=== PATIENT | male | born 1965 | race Hispanic/Latino ===

== ENCOUNTER 2017-04-04 06:55 | Outpatient (CLI) | payer BC ==
[2017-04-04 08:13] LABS: ALT (SGPT) 78 U/L (8-55); AST (SGOT) 48 U/L (5-34); Albumin 4.3 g/dL (3.5-5.0); Alkaline Phosphatase 58 U/L (40-150); Anion Gap 12 mmol/L (10-20); BUN (Urea Nitrogen) 11 mg/dL (8.4-25.7); Bilirubin, Total 0.9 mg/dL (0.2-1.2); Calc. Creatinine Clearance 0 mL/min (70-130); Calcium 9.2 mg/dL (7.8-10.44); Carbon Dioxide 25 mmol/L (22-29); Cardiac Risk 2.5 (Less than 4.5); Chloride 109 mmol/L (98-107); Cholesterol 178 mg/dl (< 200 Desired); Estimated GFR-MDRD Greater than 90; Globulin 2.9 g/dL (2.4-3.5); Glucose 93 mg/dL (70-105); HDL Cholesterol 70 mg/dL (>60 Neg Risk); LDL Cholesterol, Calculated 91 mg/dL; Potassium 3.8 mmol/L (3.5-5.1); Protein, Total 7.2 g/dL (6.0-8.3); Sodium 142 mmol/L (136-145); Triglycerides 87 mg/dL (Less than 150)
== END 2017-04-04 06:56 | disposition home or self-care (01) ==
LOC: BURLAB 06:55
PROVIDERS: ATTEND Family Medicine
DX: E78.2 Mixed hyperlipidemia (principal)
CPT/HCPCS: 36415; 80053; 80061

== ENCOUNTER 2020-05-22 14:03 | Emergency (ER) | payer BC, OTHER ==
--- NOTE | 2020-05-22 14:32 | RAD ---
XR Finger(s) Lt Min 2 View History: Crush injury distal portion of the thumb Comparison: None. Findings: Transversely oriented fracture tuft distal phalanx of the thumb with minimal less than 1 co rtex width palmar displacement. Impression: Minimally displaced transverse fracture of the tuft distal phalanx of the thumb.
[2020-05-22] MEDS ORDERED: Cephalexin 250 MG CAP ONE (15:07)
[2020-05-22] MEDS ORDERED: Bacitracin 1 PK ONE (15:07)
[2020-05-22] MEDS ORDERED: Adacel (T-DAP) 0.5 ML SYRINGE ONE (15:07)
== END 2020-05-22 15:30 | disposition home or self-care (01) ==
LOC: BURERS 14:03
DX: S28.0XXA Crushed chest, initial encounter (principal); S62.525A Nondisplaced fracture of distal phalanx of left thumb, initial encounter for closed fracture; F17.220 Nicotine dependence, chewing tobacco, uncomplicated; E78.5 Hyperlipidemia, unspecified; I10 Essential (primary) hypertension; W23.0XXA Caught, crushed, jammed, or pinched between moving objects, initial encounter
CPT/HCPCS: 90471; 90715